=== PATIENT | female | born 1975 | race Caucasian/White ===

== ENCOUNTER 2016-11-06 14:38 | Outpatient (CLI) | payer MEDICAID | END 2016-11-06 14:39 | disposition home or self-care (01) | DX: F32.9 Major depressive disorder, single episode, unspecified (principal) ==

== ENCOUNTER 2016-12-24 13:14 | Outpatient (CLI) | payer MEDICAID | END 2016-12-24 13:15 | disposition home or self-care (01) | DX: R06.02 Shortness of breath (principal) ==

== ENCOUNTER 2017-05-11 13:36 | Emergency (ER) | payer MEDICAID ==
[2017-05-11 13:41] VITALS: BP 149/98
--- NOTE | 2017-05-11 18:20 | ED Physician Documentation ---
PD HPI ABD PAIN - Stated complaint Stated Complaint: ABX PX/VOMITING - Chief complaint Chief Complaint: Abd Pain - History obtained from History obtained from: Patient PD PAST MEDICAL HISTORY - Past Medical History Cardiovascular: None Respiratory: Asthma Endocrine/Autoimmune: None GI: None : None HEENT: None Psych: Depression, Anxiety, Panic attacks Musculoskeletal: None Derm: None - Past Surgical History General: Appendectomy - Present Medications Home Medications: Ambulatory Orders Medication Instructions Recorded Confirmed Butalbital/Aspirin/Caffeine 1 cap PO Q6H PRN 06/16/16 05/11/17 [Fiorinal 50-325-40 mg Capsule] Albuterol 1 puffs INH Q4H PRN 06/18/16 05/11/17 Alprazolam 0.5 mg PO PRN PRN 06/24/16 05/11/17 Amitriptyline [Elavil] 25 mg PO QPM 06/24/16 05/11/17 ARIPiprazole [Abilify] 5 mg PO DAILY 05/11/17 05/11/17 - Allergies Allergies/Adverse Reactions: Allergies Allergy/AdvReac Type Severity Reaction Status Date / Time Penicillins Allergy Rash Verified 06/18/16 10:19 - Social History Does the pt smoke?: Yes Smoking Status: Current every day smoker Does the pt drink ETOH?: No Does the pt have substance abuse?: No Results - Vitals Vitals: Oxygen O2 Source Room air Departure - Departure Disposition: ED Left Without Being Seen Discharge Date/Time: 05/11/17 18:26
== END 2017-05-11 18:26 | disposition left against medical advice (07) ==
LOC: ED 13:36
DX: R10.9 Unspecified abdominal pain (principal); Z53.21 Procedure and treatment not carried out due to patient leaving prior to being seen by health care provider; J45.909 Unspecified asthma, uncomplicated; F17.200 Nicotine dependence, unspecified, uncomplicated

== ENCOUNTER 2017-06-27 11:30 | Emergency (ER) | payer MEDICAID ==
[2017-06-27 11:47] VITALS: BP 155/119
--- NOTE | 2017-06-27 12:28 | XRAY Preliminary Report ---
Exam: XR Chest 2 View PA/LAT IMPRESSION: No acute process. [facility] SITE ID: [id number]
--- NOTE | 2017-06-27 12:31 | XRAY Report ---
EXAM: CHEST RADIOGRAPHY EXAM DATE: 06/27/2017 12:10 PM. CLINICAL HISTORY: Cough. COMPARISON: 12/24/2016. TECHNIQUE: 2 views. FINDINGS: Lungs/Pleura: No focal opacities evident. No pleural effusion. Minimal left basilar atelectasis. No p neumothorax. Normal volumes. Mediastinum: Heart and mediastinal contours are stable. IMPRESSION: No acute process. [facility] Referring Provider Line: [phone] SITE ID: [id number]
[2017-06-27] MEDS ORDERED: IPRATROPIUM/ALBUTEROL 3 ML NEB INH STA (12:34)
--- NOTE | 2017-06-27 12:37 | ED Physician Documentation ---
PD HPI DYSPNEA - Stated complaint Stated Complaint: COUGH/CONGESTED - Chief complaint Chief Complaint: Resp - History obtained from History obtained from: Patient - History of Present Illness Timing - onset: Other (41-year-old woman with chronic bronchitis maintained on albuterol and Dulera presents with 3 days of increasing shortness of breath, productive cough with yellow and green sputum and sinus pressure. No measured fevers. No sick contacts or recent travel.) Review of Systems Constitutional: denies: Fever, Chills Nose: reports: Rhinorrhea / runny nose, Congestion, Sinus pressure / pain Throat: denies: Sore throat Respiratory: reports: Dyspnea, Cough GI: denies: Abdominal Pain : reports: Hysterectomy. denies: Now EGA PD PAST MEDICAL HISTORY - Past Medical History Cardiovascular: None Respiratory: Asthma Endocrine/Autoimmune: None GI: None : None HEENT: None Psych: Depression, Anxiety, Panic attacks Musculoskeletal: None Derm: None - Past Surgical History General: Appendectomy - Present Medications Home Medications: Ambulatory Orders Medication Instructions Recorded Confirmed Butalbital/Aspirin/Caffeine 1 cap PO Q6H PRN 06/16/16 06/27/17 [Fiorinal 50-325-40 mg Capsule] Albuterol 1 puffs INH Q4H PRN 06/18/16 06/27/17 Alprazolam 0.5 mg PO PRN PRN 06/24/16 06/27/17 Amitriptyline [Elavil] 25 mg PO QPM 06/24/16 06/27/17 ARIPiprazole [Abilify] 5 mg PO DAILY 05/11/17 06/27/17 Doxycycline Hyclate 100 mg PO BID #14 tablet 06/27/17 guaiFENesin/CODEINE [Robitussin AC] 5 - 10 ml PO Q6H PRN #120 ml 06/27/17 predniSONE [Deltasone] 60 mg PO DAILY 5 Days tablet 06/27/17 - Allergies Allergies/Adverse Reactions: Allergies Allergy/AdvReac Type Severity Reaction Status Date / Time Penicillins Allergy Rash Verified 06/27/17 11:58 - Social History Does the pt smoke?: Yes Smoking Status: Current every day smoker Does the pt drink ETOH?: No Does the pt have substance abuse?: No PD ED PE NORMAL - Vitals Vital signs reviewed: Yes - General General: Alert and oriented X 3, No acute distress - HEENT HEENT: PERRL, EOMI, Ears normal - Neck Neck: Supple, no meningeal sign, No bony TTP - Cardiac Cardiac: RRR, No murmur - Respiratory Respiratory: Other (Very tight and wheezy throughout but no respiratory distress.) - Abdomen Abdomen: Soft, Non tender - Derm Derm: No rash - Neuro Neuro: Alert and oriented X 3, Normal speech - Psych Psych: Normal mood, Normal affect Results - Vitals Vitals: Vital Signs - 24 hr 06/27/17 11:45 Temperature 36.3 C L Heart Rate 99 Respiratory 18 Rate Blood Pressure 155/119 H O2 Saturation 97 Oxygen O2 Source Room air - Rads (name of study) 2 view chest Radiology: EMP read contemporaneously (Normal) Departure - Departure Disposition: Home, Self Care Clinical Impression: Acute exacerbation of chronic bronchitis Condition: Good Record reviewed to determine appropriate education?: Yes Instructions: ED COPD Flare Prescriptions: Doxycycline Hyclate 100 mg PO BID #14 tablet guaiFENesin/CODEINE [Robitussin AC] 5 - 10 ml PO Q6H PRN #120 ml PRN Reason: Cough predniSONE [Deltasone] 60 mg PO DAILY 5 Days tablet Comments: Call your doctor to arrange a follow-up appointment, make the next available appointment. In the interim, return anytime if worse or if new symptoms develop. Your blood pressure was elevated today on check into the emergency department. This does not mean that you have hypertension, it is a common phenomenon to come to the emergency department and have elevated blood pressure. I recommend that she see your primary care physician within the week to have it rechecked when you are feeling better. Forms: Activity restrictions
[2017-06-27] MEDS ORDERED: IPRATROPIUM/ALBUTEROL 3 ML NEB INH ONE (12:52)
== END 2017-06-27 13:04 | disposition home or self-care (01) ==
LOC: ED 11:30
DX: J20.9 Acute bronchitis, unspecified (principal); J42 Unspecified chronic bronchitis; F17.200 Nicotine dependence, unspecified, uncomplicated
CPT/HCPCS: 71020; 99283; J7620

== ENCOUNTER 2017-07-03 15:28 | Emergency (ER) | payer MEDICAID ==
[2017-07-03 15:34] VITALS: BP 142/91
[2017-07-03] MEDS ORDERED: predniSONE 20 MG TABLET PO STA (16:27)
[2017-07-03] MEDS ORDERED: IPRATROPIUM/ALBUTEROL 3 ML NEB INH STA (16:27)
--- NOTE | 2017-07-03 16:35 | ED Physician Documentation ---
PD HPI URI - Stated complaint Stated Complaint: SOA/COUGH - Chief complaint Chief Complaint: Resp - History obtained from History obtained from: Patient - History of Present Illness Timing - onset: How many weeks ago (4) Timing duration: Weeks (4) Timing details: Gradual onset Pain level max: 0 Pain level now: 0 Associated symptoms: Fever (101 this am), Sweats, Nasal congestion, Rhinorrhea, Productive cough (clear), Dyspnea. No: Chills, Hemoptysis, Chest pain, NVD Contributing factors: COPD / asthma Improves by: Rest, MDI/nebulizer Similar symptoms before: Diagnosis (COPD flare) Recently seen: Emergency Dept (last week for same) - Additional information Additional information: has appt on 07/06 with PCP Review of Systems Constitutional: reports: Fever GI: denies: Vomiting Skin: denies: Rash Musculoskeletal: denies: Neck pain, Back pain PD PAST MEDICAL HISTORY - Past Medical History Cardiovascular: None Respiratory: COPD Endocrine/Autoimmune: None GI: None : None HEENT: None Psych: Depression, Anxiety, Panic attacks Musculoskeletal: None Derm: None - Past Surgical History General: Appendectomy - Present Medications Home Medications: Ambulatory Orders Medication Instructions Recorded Confirmed Butalbital/Aspirin/Caffeine 1 cap PO Q6H PRN 06/16/16 07/03/17 [Fiorinal 50-325-40 mg Capsule] Albuterol 1 puffs INH Q4H PRN 06/18/16 07/03/17 Alprazolam 0.5 mg PO PRN PRN 06/24/16 07/03/17 Amitriptyline [Elavil] 25 mg PO QPM 06/24/16 07/03/17 ARIPiprazole [Abilify] 5 mg PO DAILY 05/11/17 07/03/17 Albuterol Sulf [Ventolin Hfa 2 puffs INH Q4HR PRN #1 inhaler 07/03/17 Inhaler] Benzonatate [Tessalon Perle] 100 - 200 mg PO TID PRN #30 capsule 07/03/17 Prednisone 40 mg PO DAILY #10 tablet 07/03/17 - Allergies Allergies/Adverse Reactions: Allergies Allergy/AdvReac Type Severity Reaction Status Date / Time Penicillins Allergy Rash Verified 06/27/17 11:58 - Social History Does the pt smoke?: Yes Smoking Status: Current every day smoker Does the pt drink ETOH?: No Does the pt have substance abuse?: No PD ED PE NORMAL - Vitals Vital signs reviewed: Yes - General General: Alert and oriented X 3, No acute distress, Well developed/nourished - HEENT HEENT: PERRL, Ears normal, Moist mucous membranes, Pharynx benign - Neck Neck: Supple, no meningeal sign - Cardiac Cardiac: RRR, Strong equal pulses - Respiratory Respiratory: No respiratory distress, Other (wheezing and decreased BS bilaterally.) - Abdomen Abdomen: Soft, Non tender - Derm Derm: Warm and dry, No rash - Extremities Extremities: No edema, No calf tenderness / cord - Neuro Neuro: Alert and oriented X 3 Results - Vitals Vitals: Vital Signs - 24 hr 07/03/17 07/03/17 07/03/17 15:30 16:45 17:15 Temperature 36.9 C Heart Rate 101 H 93 101 H Respiratory 20 20 16 Rate Blood Pressure 142/91 H O2 Saturation 93 07/03/17 17:46 Temperature Heart Rate 107 H Respiratory 20 Rate Blood Pressure O2 Saturation 91 L Oxygen O2 Source Room air - Rads (name of study) cxr Radiology: Prelim report reviewed, EMP read contemporaneously, See rad report ( Minor left base scarring, otherwise unremarkable 2-view chest radiography. ) PD MEDICAL DECISION MAKING - ED course Complexity details: reviewed old records, reviewed results, re-evaluated patient , considered differential, d/w patient ED course: Patient is a 41-year-old female who presents to the emergency department with what appears to be a viral URI complicating her COPD. Feels much better after steroids and nebulizer treatment. No hypoxia. No respiratory distress. Ambulating throughout the emergency department without difficulty. No hypoxia with ambulation. We will place her back on steroids and nebulizer treatment and follow-up with her doctor as scheduled on Thursday. Patient counseled regarding signs and symptoms for which I believe and urgent re-evaluation would be necessary. Patient with good understanding of and agreement to plan and is comfortable going home at this time This document was made in part using voice recognition software. While efforts are made to proofread this document, sound alike and grammatical errors may occur. Patient was 94% on room air when leaving the ED despite the 91% documented in the nursing note. Nursing vitals not seen til after change of shift. Departure - Departure Disposition: Home, Self Care Clinical Impression: COPD exacerbation Condition: Good Instructions: ED COPD Flare Follow-Up: Nitza He ARNP [Primary Care Provider] - Within 1 week Prescriptions: Albuterol Sulf [Ventolin Hfa Inhaler] 2 puffs INH Q4HR PRN #1 inhaler PRN Reason: Wheezing Benzonatate [Tessalon Perle] 100 - 200 mg PO TID PRN #30 capsule PRN Reason: Cough Prednisone 40 mg PO DAILY #10 tablet Comments: Return if you worsen. Your x-ray does not show any acute abnormalities today. Your blood pressure was elevated today on check in to the emergency department. This does not mean that you have hypertension, it is a common phenomenon to check into the emergency department and have elevated blood pressure. I recommend that you see your primary care physician within the week to have it rechecked when you're feeling better. Discharge Date/Time: 07/03/17 18:03
[2017-07-03] MEDS ORDERED: IPRATROPIUM/ALBUTEROL 3 ML NEB INH ONE (16:46)
[2017-07-03] MEDS ORDERED: predniSONE 20 MG TABLET ONE (16:51)
[2017-07-03] MEDS ORDERED: ALBUTEROL NEB 2.5 MG/3 ML INH STA (16:57)
[2017-07-03] MEDS ORDERED: ALBUTEROL NEB 2.5 MG/3 ML INH ONE (17:25)
--- NOTE | 2017-07-03 17:31 | XRAY Preliminary Report ---
Exam: XR Chest 2 View PA/LAT IMPRESSION: Minor left base scarring, otherwise unremarkable 2-view chest radiography. [facility] SITE ID: [id number]
--- NOTE | 2017-07-03 17:33 | XRAY Report ---
EXAM: CHEST RADIOGRAPHY EXAM DATE: 07/03/2017 05:18 PM. CLINICAL HISTORY: Wheezing. Coughing. Fever. COMPARISON: 06/27/2017. TECHNIQUE: 2 views. FINDINGS: Lungs/Pleura: Minor left base scarring, otherwise no focal opacities evident. No pleural effusion. No pneumothorax. Normal volumes. Mediastinum: Heart and mediastinal contours are unremarkable. Other: No compression fractures. IMPRESSION: Minor left base scarring, otherwise unremarkable 2-view chest radiography. [facility] Referring Provider Line: [phone] SITE ID: [id number]
== END 2017-07-03 18:03 | disposition home or self-care (01) ==
LOC: ED 15:28
DX: J44.1 Chronic obstructive pulmonary disease with (acute) exacerbation (principal); R03.0 Elevated blood-pressure reading, without diagnosis of hypertension; F17.200 Nicotine dependence, unspecified, uncomplicated
CPT/HCPCS: 71020; 94640; 99283; 99284; J7512; J7613; J7620

== ENCOUNTER 2017-10-04 09:25 | Outpatient (CLI) | payer MEDICAID ==
[2017-10-04] MEDS ORDERED: ALBUTEROL NEB 2.5 MG/3 ML INH ONE (11:15)
== END 2017-10-04 09:26 | disposition home or self-care (01) ==
LOC: RT 09:25
PROVIDERS: ATTEND Nurse Practitioner Family
DX: J45.20 Mild intermittent asthma, uncomplicated (principal); R06.02 Shortness of breath
CPT/HCPCS: 94060; 94729; J7613

== ENCOUNTER 2017-11-25 13:08 | Emergency (ER) | payer MEDICAID ==
[2017-11-25 13:37] VITALS: BP 164/108
--- NOTE | 2017-11-25 14:18 | ED Physician Documentation ---
PD HPI URI - Stated complaint Stated Complaint: COUGH,FACIAL PX - Chief complaint Chief Complaint: Resp - History obtained from History obtained from: Patient - History of Present Illness Timing - onset: Other (42-year-old woman with COPD presents with 3-4 days of increased cough, shortness of breath, sinus drainage bilaterally and sinus pain but no fevers. She has had sweats.) Review of Systems Constitutional: reports: Sweats. denies: Fever, Chills Nose: reports: Rhinorrhea / runny nose, Congestion, Sinus pressure / pain Throat: denies: Sore throat Respiratory: reports: Dyspnea, Cough PD PAST MEDICAL HISTORY - Past Medical History Cardiovascular: None Respiratory: COPD Endocrine/Autoimmune: None GI: None : None HEENT: None Psych: Depression, Anxiety, Panic attacks Musculoskeletal: None Derm: None - Past Surgical History General: Appendectomy - Present Medications Home Medications: Ambulatory Orders Medication Instructions Recorded Confirmed Butalbital/Aspirin/Caffeine 1 cap PO Q6H PRN 06/16/16 07/03/17 [Fiorinal 50-325-40 mg Capsule] Albuterol 1 puffs INH Q4H PRN 06/18/16 07/03/17 ALPRAZolam [Alprazolam] 0.5 mg PO PRN PRN 06/24/16 07/03/17 Amitriptyline [Elavil] 25 mg PO QPM 06/24/16 07/03/17 ARIPiprazole [Abilify] 5 mg PO DAILY 05/11/17 07/03/17 Albuterol Sulf [Ventolin Hfa 2 puffs INH Q4HR PRN #1 inhaler 07/03/17 Inhaler] Doxycycline Hyclate 100 mg PO BID #14 tablet 11/25/17 Guaifenesin/Pseudoephedrne HCl 1 each PO BID PRN #20 tab.er.12h 11/25/17 [Mucinex D ER 600-60 mg Tablet] Mometasone Furoate [Nasonex] 1 spray NS BID #1 spray.pump 11/25/17 guaiFENesin/CODEINE [Robitussin AC] 5 - 10 ml PO Q6H PRN #120 ml 11/25/17 predniSONE [Deltasone] 60 mg PO DAILY 5 Days tablet 11/25/17 - Allergies Allergies/Adverse Reactions: Allergies Allergy/AdvReac Type Severity Reaction Status Date / Time Penicillins Allergy Rash Verified 11/25/17 13:37 - Social History Does the pt smoke?: Yes Smoking Status: Current every day smoker Does the pt drink ETOH?: No Does the pt have substance abuse?: No PD ED PE NORMAL - Vitals Vital signs reviewed: Yes - General General: Alert and oriented X 3, No acute distress - HEENT HEENT: PERRL, EOMI, Ears normal, Moist mucous membranes, Pharynx benign, Other ( TTP both max sinuses) - Neck Neck: Supple, no meningeal sign, No bony TTP - Cardiac Cardiac: RRR, No murmur - Respiratory Respiratory: No respiratory distress, Other (Mod loud rhonchi throughout) - Abdomen Abdomen: Soft, Non tender - Derm Derm: Normal color, Warm and dry - Extremities Extremities: No edema, No calf tenderness / cord - Neuro Neuro: Alert and oriented X 3, Normal speech - Psych Psych: Normal mood, Normal affect Results - Vitals Vitals: Vital Signs - 24 hr 11/25/17 13:34 Temperature 36.7 C Heart Rate 85 Respiratory 18 Rate Blood Pressure 164/108 H O2 Saturation 95 Oxygen O2 Source Room air PD MEDICAL DECISION MAKING - ED course ED course: The patient was counseled as to the diagnosis and need for follow-up. I counseled the patient with regard to signs and symptoms that would necessitate an urgent reevaluation in the emergency department. They understand they are welcome to return at any time if worse or if not improving as expected. This document was made in part using voice recognition software. While efforts are made to proofread this documents, sound alike and grammatical errors may occur. Departure - Departure Disposition: 01 Home, Self Care Clinical Impression: Acute exacerbation of chronic bronchitis, COPD exacerbation Condition: Good Record reviewed to determine appropriate education?: Yes Instructions: ED Bronchitis Asthmatic Prescriptions: Doxycycline Hyclate 100 mg PO BID #14 tablet guaiFENesin/CODEINE [Robitussin AC] 5 - 10 ml PO Q6H PRN #120 ml PRN Reason: Cough Guaifenesin/Pseudoephedrne HCl [Mucinex D ER 600-60 mg Tablet] 1 each PO BID PRN #20 tab.er.12h PRN Reason: congestion Mometasone Furoate [Nasonex] 1 spray NS BID #1 spray.pump predniSONE [Deltasone] 60 mg PO DAILY 5 Days tablet Comments: Call your doctor to arrange a follow-up appointment, make the next available appointment. In the interim, return anytime if worse or if new symptoms develop. Your blood pressure was elevated today on check into the emergency department. This does not mean that you have hypertension, it is a common phenomenon to come to the emergency department and have elevated blood pressure. I recommend that you see your primary care physician within the week to have it rechecked when you are feeling better. Forms: Activity restrictions
== END 2017-11-25 14:40 | disposition home or self-care (01) ==
LOC: ED 13:08
DX: J20.9 Acute bronchitis, unspecified (principal); J44.1 Chronic obstructive pulmonary disease with (acute) exacerbation; R03.0 Elevated blood-pressure reading, without diagnosis of hypertension; F17.200 Nicotine dependence, unspecified, uncomplicated
CPT/HCPCS: 99281; 99283

== ENCOUNTER 2018-03-25 08:00 | Outpatient (CLI) | payer MEDICAID | END 2018-03-25 08:01 | disposition home or self-care (01) | LOC: LAB.R 08:00 | PROVIDERS: ATTEND Family Medicine | DX: R30.0 Dysuria (principal) | CPT/HCPCS: 87086; 87181 ==

== ENCOUNTER 2018-03-26 10:52 | Outpatient (CLI) | payer MEDICAID ==
[2018-03-26] MEDS ORDERED: IOPAMIDOL-300 100 ML VIAL ONE (11:40)
[2018-03-26] MEDS ORDERED: IOPAMIDOL-300 100 ML VIAL IVP ONE (12:02)
--- NOTE | 2018-03-26 12:31 | CT Report ---
Procedure Date: 03/26/2018 Accession Number: [id number] / [id number] Procedure: CT - IVP CPT Code: FULL RESULT: EXAM: IVP DATE: 03/26/2018 12:18 PM CLINICAL HISTORY: DYSURIA, HEMATURIA, HX OF CALCULUS, KIDNEY COMPARISON: None. TECHNIQUE: Routine helical imaging was performed through the kidneys, ureters and bladder in the precontrast and postcontrast phases, using split bolus technique. IV Contrast: 100 mL Isovue 300 Reconstructions: Coronal and sagittal. In accordance with CT protocol optimization, one or more of the following dose reduction techniques were utilized for this exam: automated exposure control, adjustment of mA and/or KV based on patient size, or use of iterative reconstructive technique. FINDINGS: Lung Bases: Normal. Right Kidney/Ureter: No stones, hydronephrosis, or masses. Left Kidney/Ureter: No stones, hydronephrosis, or solid renal mass. Small cortical cysts. Other Solid Organs: Fatty infiltration of the liver. The spleen, pancreas and adrenal glands appear unremarkable. The bile ducts are unremarkable. Peritoneal Cavity/Bowel: Normal. No free fluid, free air or adenopathy. No masses. Bowel loops are unremarkable. Pelvic Organs: No bladder stones, obstruction or masses. The visualized pelvic organs are unremarkable. Vasculature: Normal. Bones: Normal. Other: None. IMPRESSION: Incidental left renal cysts. No evidence of nephrolithiasis or solid renal mass. [facility]
== END 2018-03-26 10:53 | disposition home or self-care (01) ==
LOC: DI 10:52
PROVIDERS: ATTEND Family Medicine
DX: R30.0 Dysuria (principal); R31.9 Hematuria, unspecified; Z87.442 Personal history of urinary calculi
CPT/HCPCS: 74178; Q9967

== ENCOUNTER 2018-04-16 17:28 | Emergency (ER) | payer MEDICAID ==
[2018-04-16] MEDS ORDERED: ALBUTEROL NEB 2.5 MG/3 ML INH STA (17:58)
[2018-04-16] MEDS ORDERED: IPRATROPIUM 0.2 MG/ML NEB INH STA (17:58)
[2018-04-16] MEDS ORDERED: predniSONE 20 MG TABLET PO STA (17:59)
[2018-04-16 19:37] VITALS: BP 133/77
--- NOTE | 2018-04-16 19:55 | ED Physician Documentation ---
History of Present Illness - Stated complaint Stated Complaint: SOA - Chief complaint Chief Complaint: Resp - History obtained from History obtained from: Patient - Additonal information Additional information: 42-year-old female presents the emergency department with complaints of wheezing and shortness of breath. The patient has a history of COPD and continues to smoke. The patient has been using her home medications with minimal relief. The patient's symptoms are consistent with her normal COPD. The patient denies fevers, chills, cough, chest congestion. Symptoms are described as moderate. No other associated symptoms. Review of Systems Constitutional: reports: Fatigue. denies: Fever, Chills Eyes: denies: Discharge Ears: denies: Tinnitus/ringing Nose: denies: Rhinorrhea / runny nose, Congestion Cardiac: denies: Chest pain / pressure Respiratory: reports: Dyspnea, Wheezing GI: denies: Abdominal Pain : denies: Dysuria Skin: denies: Rash Musculoskeletal: denies: Neck pain Neurologic: denies: Generalized weakness Psychiatric: denies: Depressed Immunocompromised: denies: Chemotherapy PD PAST MEDICAL HISTORY - Past Medical History Past Medical History: Yes Cardiovascular: None Respiratory: COPD Endocrine/Autoimmune: None GI: None : None HEENT: None Psych: Depression, Anxiety, Panic attacks Musculoskeletal: None Derm: None - Past Surgical History General: Appendectomy - Present Medications Home Medications: Ambulatory Orders Medication Instructions Recorded Confirmed Butalbital/Aspirin/Caffeine 1 cap PO Q6H PRN 06/16/16 07/03/17 [Fiorinal 50-325-40 mg Capsule] Albuterol 1 puffs INH Q4H PRN 06/18/16 07/03/17 ALPRAZolam [Alprazolam] 0.5 mg PO PRN PRN 06/24/16 07/03/17 Amitriptyline [Elavil] 25 mg PO QPM 06/24/16 07/03/17 ARIPiprazole [Abilify] 5 mg PO DAILY 05/11/17 07/03/17 Albuterol Sulf [Ventolin Hfa 2 puffs INH Q4HR PRN #1 inhaler 07/03/17 Inhaler] predniSONE [Prednisone] 60 mg PO DAILY 4 Days #12 tablet 04/16/18 - Allergies Allergies/Adverse Reactions: Allergies Allergy/AdvReac Type Severity Reaction Status Date / Time Penicillins Allergy Rash Verified 04/16/18 17:41 - Social History Does the pt smoke?: Yes Smoking Status: Current every day smoker Does the pt drink ETOH?: No Does the pt have substance abuse?: No - POLST Patient has POLST: No PD ED PE NORMAL - General General: Alert and oriented X 3, No acute distress - HEENT HEENT: Atraumatic, PERRL, EOMI - Neck Neck: Supple, no meningeal sign - Cardiac Cardiac: RRR, Strong equal pulses - Respiratory Respiratory: Other (The patient has decreased aeration with wheezing bilaterally. The patient is not in any respiratory distress or signs of respiratory failure) - Derm Derm: Normal color - Extremities Extremities: No deformity, No edema - Neuro Neuro: Alert and oriented X 3, Normal speech - Psych Psych: Normal mood Results - Vitals Vitals: Vital Signs - 24 hr 04/16/18 04/16/18 04/16/18 17:39 18:19 19:25 Temperature 36.1 C L Heart Rate 80 86 Respiratory 22 22 17 Rate Blood Pressure 169/99 H O2 Saturation 98 04/16/18 19:35 Temperature Heart Rate 103 H Respiratory 19 Rate Blood Pressure 133/77 H O2 Saturation 97 Oxygen O2 Source Room air PD MEDICAL DECISION MAKING - ED course ED course: The patient improved after a long treatment in the emergency department. On reevaluation she has good aeration and her wheezing has almost completely resolved. The patient appears appropriate for discharge home at this point. The patient be put on a course of prednisone. I discussed warning signs for decompensation and recommended returning to the emergency department immediately for any worsening or concerns. - Sepsis Event Vital Signs: Vital Signs - 24 hr 04/16/18 04/16/18 04/16/18 17:39 18:19 19:25 Temperature 36.1 C L Heart Rate 80 86 Respiratory 22 22 17 Rate Blood Pressure 169/99 H O2 Saturation 98 04/16/18 19:35 Temperature Heart Rate 103 H Respiratory 19 Rate Blood Pressure 133/77 H O2 Saturation 97 Oxygen O2 Source Room air Departure - Departure Disposition: 01 Home, Self Care Clinical Impression: COPD with exacerbation Condition: Good Instructions: Emphysema Dc Follow-Up: MORIAH HENDERSON MD [Primary Care Provider] - Within 1 week Prescriptions: predniSONE [Prednisone] 60 mg PO DAILY 4 Days #12 tablet Comments: Please return to the emergency department for worsening symptoms or any concerns. Forms: Activity restrictions
== END 2018-04-16 20:18 | disposition home or self-care (01) ==
LOC: ED 17:28
DX: J44.1 Chronic obstructive pulmonary disease with (acute) exacerbation (principal); F17.200 Nicotine dependence, unspecified, uncomplicated
CPT/HCPCS: 99283; A9270; J7512

== ENCOUNTER 2018-05-12 17:08 | Outpatient (CLI) | payer MEDICAID | END 2018-05-12 17:09 | disposition critical access hospital (66) | LOC: EMS 17:08 | PROVIDERS: ATTEND Surgery | DX: R55 Syncope and collapse (principal); R03.0 Elevated blood-pressure reading, without diagnosis of hypertension; R05 Cough | CPT/HCPCS: A0425; A0429; A0999 ==

== ENCOUNTER 2018-05-12 17:27 | Emergency (ER) | payer MEDICAID ==
[2018-05-12] MEDS ORDERED: IPRATROPIUM/ALBUTEROL 3 ML NEB INH STA (17:44)
--- NOTE | 2018-05-12 17:46 | ED Physician Documentation ---
PD HPI SYNCOPE - Stated complaint Stated Complaint: SYNCOPE - Chief complaint Chief Complaint: Neuro - History obtained from History obtained from: Patient - History of Present Illness Witnessed: Witnessed (She was standing at work at [employer], she started to feel dizzy and lightheaded and passed out without injury. She feels okay now but does have a cough.) Review of Systems Constitutional: denies: Fever, Chills Ears: denies: Loss of hearing, Ear pain Nose: denies: Rhinorrhea / runny nose, Congestion Cardiac: denies: Chest pain / pressure, Palpitations Respiratory: reports: Cough PD PAST MEDICAL HISTORY - Past Medical History Cardiovascular: None Respiratory: COPD Endocrine/Autoimmune: None GI: None : None HEENT: None Psych: Depression, Anxiety, Panic attacks Musculoskeletal: None Derm: None - Past Surgical History General: Appendectomy - Present Medications Home Medications: Ambulatory Orders Medication Instructions Recorded Confirmed Butalbital/Aspirin/Caffeine 1 cap PO Q6H PRN 06/16/16 07/03/17 [Fiorinal 50-325-40 mg Capsule] Albuterol 1 puffs INH Q4H PRN 06/18/16 07/03/17 ALPRAZolam [Alprazolam] 0.5 mg PO PRN PRN 06/24/16 07/03/17 Amitriptyline [Elavil] 25 mg PO QPM 06/24/16 07/03/17 ARIPiprazole [Abilify] 5 mg PO DAILY 05/11/17 07/03/17 Albuterol Sulf [Ventolin Hfa 2 puffs INH Q4HR PRN #1 inhaler 07/03/17 Inhaler] predniSONE [Prednisone] 60 mg PO DAILY 4 Days #12 tablet 04/16/18 Sulfamethoxazole/Trimethoprim 1 each PO BID 7 Days tablet 05/12/18 [Sulfamethoxazole-Tmp Ds Tablet] - Allergies Allergies/Adverse Reactions: Allergies Allergy/AdvReac Type Severity Reaction Status Date / Time Penicillins Allergy Rash Verified 05/12/18 17:40 - Social History Does the pt smoke?: Yes Smoking Status: Current every day smoker Does the pt drink ETOH?: No Does the pt have substance abuse?: No - POLST Patient has POLST: No PD ED PE NORMAL - Vitals Vital signs reviewed: Yes - General General: Alert and oriented X 3, No acute distress - HEENT HEENT: PERRL, EOMI - Neck Neck: Supple, no meningeal sign, No bony TTP - Cardiac Cardiac: RRR, No murmur - Respiratory Respiratory: No respiratory distress, Other (Rhonchi ) - Abdomen Abdomen: Normal bowel sounds, Soft, Non tender - Back Back: No CVA TTP, No spinal TTP - Derm Derm: Normal color, Warm and dry - Extremities Extremities: No edema, No calf tenderness / cord - Neuro Neuro: Alert and oriented X 3, Normal speech - Psych Psych: Normal mood, Normal affect Results - Vitals Vitals: Vital Signs - 24 hr 05/12/18 05/12/18 05/12/18 17:27 18:00 18:02 Temperature 36.4 C L Heart Rate 89 82 87 Respiratory 18 16 20 Rate Blood Pressure 151/103 H 136/97 H O2 Saturation 96 97 05/12/18 05/12/18 19:57 19:58 Temperature 36.3 C L Heart Rate 80 80 Respiratory 20 18 Rate Blood Pressure 146/106 H 146/106 H O2 Saturation 98 Oxygen O2 Source Room air - EKG (time done) 1743 Rate: Rate (enter#) (94) Rhythm: NSR [place]: Normal Intervals: Normal MT QRS: Normal Ischemia: Normal ST segments Computer interpretation: Agree with computer - Labs Labs: Laboratory Tests 05/12/18 05/12/18 05/12/18 17:57 17:57 17:57 WBC 8.4 RBC 4.49 Hgb 14.7 Hct 42.3 MCV 94.3 MCH 32.8 H MCHC 34.8 RDW 13.3 Plt Count 185 MPV 7.7 L Neut # (Auto) 4.5 Lymph # (Auto) 2.9 [place] # (Auto) 0.6 Eos # (Auto) 0.3 Baso # (Auto) 0.1 Absolute Nucleated RBC 0.00 Nucleated RBC % 0.0 Sodium 136 Potassium 3.9 Chloride 103 Carbon Dioxide 26 Anion Gap 7.0 BUN 13 Creatinine 0.7 Estimated GFR (MDRD) 91 Glucose 117 H Calcium 8.7 Total Bilirubin 0.4 AST 21 ALT 20 Alkaline Phosphatase 64 Troponin I < 0.04 Total Protein 6.5 L Albumin 3.5 Globulin 3.0 Albumin/Globulin Ratio 1.2 Lipase 25 Urine Color Urine Clarity Urine pH Ur Specific [place] Urine Protein Urine Glucose (UA) Urine Ketones Urine Occult Blood Urine Nitrite Urine Bilirubin Urine Urobilinogen Ur Leukocyte Esterase Urine RBC Urine WBC Ur Squamous Epith Cells Urine Bacteria Ur Microscopic Review Urine Culture Comments 05/12/18 19:00 WBC RBC Hgb Hct MCV MCH MCHC RDW Plt Count MPV Neut # (Auto) Lymph # (Auto) [place] # (Auto) Eos # (Auto) Baso # (Auto) Absolute Nucleated RBC Nucleated RBC % Sodium Potassium Chloride Carbon Dioxide Anion Gap BUN Creatinine Estimated GFR (MDRD) Glucose Calcium Total Bilirubin AST ALT Alkaline Phosphatase Troponin I Total Protein Albumin Globulin Albumin/Globulin Ratio Lipase Urine Color YELLOW Urine Clarity CLEAR Urine pH 6.0 Ur Specific [place] 1.025 Urine Protein NEGATIVE Urine Glucose (UA) NEGATIVE Urine Ketones NEGATIVE Urine Occult Blood NEGATIVE Urine Nitrite POSITIVE H Urine Bilirubin NEGATIVE Urine Urobilinogen 0.2 (NORMAL) Ur Leukocyte Esterase NEGATIVE Urine RBC None Seen Urine WBC 6-10 H Ur Squamous Epith Cells MOD Squamous H Urine Bacteria Moderate H Ur Microscopic Review INDICATED Urine Culture Comments NOT INDICATED - Rads (name of study) 2v chest Radiology: EMP read contemporaneously (normal) PD MEDICAL DECISION MAKING - ED course ED course: 42-year-old woman with syncopal episode today. She has been sick for a few days with symptoms of UTI, dysuria and frequency. Otherwise her workup was negative. No recurrent episodes or ectopy here. - Sepsis Event Vital Signs: Vital Signs - 24 hr 05/12/18 05/12/18 05/12/18 17:27 18:00 18:02 Temperature 36.4 C L Heart Rate 89 82 87 Respiratory 18 16 20 Rate Blood Pressure 151/103 H 136/97 H O2 Saturation 96 97 05/12/18 05/12/18 19:57 19:58 Temperature 36.3 C L Heart Rate 80 80 Respiratory 20 18 Rate Blood Pressure 146/106 H 146/106 H O2 Saturation 98 Oxygen O2 Source Room air Departure - Departure Disposition: 01 Home, Self Care Clinical Impression: COPD with exacerbation Syncope Qualifiers: Syncope type: unspecified Qualified Code(s): R55 - Syncope and collapse UTI (urinary tract infection) Qualifiers: Urinary tract infection type: acute cystitis Hematuria presence: without hematuria Qualified Code(s): N30.00 - Acute cystitis without hematuria Condition: Good Record reviewed to determine appropriate education?: Yes Instructions: COPD Dc, ED UTI Cystitis Female Prescriptions: Sulfamethoxazole/Trimethoprim [Sulfamethoxazole-Tmp Ds Tablet] 1 each PO BID 7 Days tablet Comments: We will culture your urine, the results should be done in 48-72 hours. If an antibiotic change is necessary we will call you. Return if worse in the meantime, especially if you develop increasing flank pain, fevers, or cannot keep down the medication. Your blood pressure was elevated today on check into the emergency department. This does not mean that you have hypertension, it is a common phenomenon to come to the emergency department and have elevated blood pressure. I recommend that you see your primary care physician within the week to have it rechecked when you are feeling better. Call your doctor to arrange a follow-up appointment, make the next available appointment. In the interim, return anytime if worse or if new symptoms develop. Forms: Activity restrictions Discharge Date/Time: 05/12/18 19:58
[2018-05-12 18:05] LABS: BASOPHILS # (AUTO) 0.1 10^3/uL (0.0-0.1); BASOPHILS % (AUTO) 0.8 %; EOSINOPHILS # (AUTO) 0.3 10^3/uL (0.0-0.7); EOSINOPHILS % (AUTO) 3.2 %; HGB - HEMOGLOBIN 14.7 g/dL (12.0-16.0); LYMPHOCYTES # (AUTO) 2.9 10^3/uL (1.5-3.5); LYMPHOCYTES % (AUTO) 35.1 %; MEAN CORPUSCULAR HEMOGLOBIN 32.8 pg (27.0-31.0); MEAN CORPUSCULAR HGB CONC 34.8 g/dL (32.0-36.0); MEAN CORPUSCULAR VOLUME 94.3 fL (81.0-99.0); MEAN PLATELET VOLUME 7.7 fL (7.9-10.8); MONOCYTES # (AUTO) 0.6 10^3/uL (0.0-1.0); MONOCYTES % (AUTO) 7.7 %; NEUTROPHILS # (AUTO) 4.5 10^3/uL (1.5-6.6); NEUTROPHILS % (AUTO) 53.2 %; PLT - PLATELET COUNT 185 10^3/uL (130-450); RED BLOOD COUNT 4.49 10^6/uL (4.20-5.40); RED CELL DISTRIBUTION WIDTH 13.3 % (12.0-15.0); WHITE BLOOD COUNT 8.4 x10^3/uL (4.8-10.8)
[2018-05-12 18:17] LABS: ALBUMIN 3.5 g/dL (3.2-5.5); ALBUMIN/GLOBULIN RATIO 1.2 (1.0-2.2); BILIRUBIN,TOTAL 0.4 mg/dL (0.2-1.0); CALCIUM 8.7 mg/dL (8.5-10.3); CREATININE 0.7 mg/dL (0.4-1.0); TOTAL PROTEIN 6.5 g/dL (6.7-8.2)
--- NOTE | 2018-05-12 18:41 | XRAY Report ---
Procedure Date: 05/12/2018 Accession Number: [id number] / [id number] Procedure: XR - Chest 2 View X-Ray CPT Code: 77111 FULL RESULT: EXAM: CHEST RADIOGRAPHY EXAM DATE: 05/12/2018 06:19 PM. CLINICAL HISTORY: Protective cough. Dyspnea. COMPARISON: CHEST 2 VIEW PA/LAT 07/03/2017. TECHNIQUE: 2 views. FINDINGS: Lungs/Pleura: No focal opacities evident. No pleural effusion. No pneumothorax. Normal volumes. Mediastinum: Heart and mediastinal contours are unremarkable. Other: No compression fractures. IMPRESSION: Normal 2-view chest radiography. RADIA
[2018-05-12 19:11] LABS: BILIRUBIN,URINE NEGATIVE (NEGATIVE); GLUCOSE, URINE (UA) NEGATIVE (NEGATIVE); KETONES,URINE (UA) NEGATIVE (NEGATIVE); LEUKOCYTE ESTERASE, URINE NEGATIVE (NEGATIVE); NITRITE,URINE POSITIVE (NEGATIVE); OCCULT BLOOD,URINE NEGATIVE (NEGATIVE); PROTEIN,URINE NEGATIVE (NEGATIVE); UROBILINOGEN,URINE 0.2 (NORMAL) E.U./dL (NORMAL)
[2018-05-12 19:16] LABS: CLARITY,URINE CLEAR (CLEAR)
[2018-05-12 19:34] LABS: BACTERIA,URINE Moderate /HPF (None Seen); RBC,URINE None Seen /HPF (0-5); SQUAMOUS EPITHELIAL CELL,UR MOD Squamous (<= Few)
[2018-05-12] MEDS ORDERED: SULFAMETH/TRIMETH DS 800/160 MG TABLET PO STA (19:48)
[2018-05-12 19:58] VITALS: BP 146/106
== END 2018-05-12 19:58 | disposition home or self-care (01) ==
LOC: EDUNIT# → SUPCPDRO 17:27 → ED 17:27
DX: J44.1 Chronic obstructive pulmonary disease with (acute) exacerbation (principal); R55 Syncope and collapse; N30.00 Acute cystitis without hematuria
CPT/HCPCS: 36415; 71046; 80053; 81001; 83690; 84484; 85025; 93005; 94640; 94664; 99284; A9270; 81003; 87086

== ENCOUNTER 2018-05-23 12:29 | Emergency (ER) | payer MEDICAID ==
[2018-05-23] MEDS ORDERED: IPRATROPIUM/ALBUTEROL 3 ML NEB INH STA (12:52)
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
[2018-05-23 13:16] LABS: BASOPHILS % (AUTO) 0.4 %; EOSINOPHILS # (AUTO) 0.2 10^3/uL (0.0-0.7); EOSINOPHILS % (AUTO) 2.6 %; HGB - HEMOGLOBIN 15.7 g/dL (12.0-16.0); LYMPHOCYTES # (AUTO) 1.6 10^3/uL (1.5-3.5); LYMPHOCYTES % (AUTO) 23.5 %; MEAN CORPUSCULAR HEMOGLOBIN 32.7 pg (27.0-31.0); MEAN CORPUSCULAR VOLUME 93.4 fL (81.0-99.0); MEAN PLATELET VOLUME 7.9 fL (7.9-10.8); MONOCYTES # (AUTO) 0.3 10^3/uL (0.0-1.0); MONOCYTES % (AUTO) 5.1 %; NEUTROPHILS # (AUTO) 4.6 10^3/uL (1.5-6.6); NEUTROPHILS % (AUTO) 68.4 %; PLT - PLATELET COUNT 201 10^3/uL (130-450); RED BLOOD COUNT 4.81 10^6/uL (4.20-5.40); WHITE BLOOD COUNT 6.8 x10^3/uL (4.8-10.8)
[2018-05-23 13:24] LABS: ALBUMIN 3.8 g/dL (3.2-5.5); ALBUMIN/GLOBULIN RATIO 1.2 (1.0-2.2); BILIRUBIN,TOTAL 0.7 mg/dL (0.2-1.0); CALCIUM 8.5 mg/dL (8.5-10.3); CREATININE 0.7 mg/dL (0.4-1.0); TOTAL PROTEIN 7.1 g/dL (6.7-8.2)
[2018-05-23] MEDS ORDERED: DOXYCYCLINE 100 MG TABLET PO STA (13:54)
[2018-05-23] MEDS ORDERED: BENZONATATE 100 MG CAPSULE PO STA (13:54)
[2018-05-23] MEDS ORDERED: predniSONE 20 MG TABLET PO STA (13:54)
[2018-05-23 14:07] VITALS: BP 135/88
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
== END 2018-05-23 14:10 | disposition home or self-care (01) ==
LOC: ED 12:29
DX: J44.1 Chronic obstructive pulmonary disease with (acute) exacerbation (principal); F17.200 Nicotine dependence, unspecified, uncomplicated
CPT/HCPCS: 36415; 71046; 80053; 83690; 85025; 94640; 99283; A9270; J7512

== ENCOUNTER 2018-07-15 15:28 | Emergency (ER) | payer MEDICAID ==
[2018-07-15 15:36] VITALS: BP 138/91
[2018-07-15] MEDS ORDERED: IPRATROPIUM/ALBUTEROL 3 ML NEB INH STA (15:50)
[2018-07-15] MEDS ORDERED: predniSONE 20 MG TABLET PO STA (15:50)
[2018-07-15] MEDS ORDERED: BENZONATATE 100 MG CAPSULE PO STA (15:51)
--- NOTE | 2018-07-15 15:56 | ED Physician Documentation ---
History of Present Illness - Stated complaint Stated Complaint: SOA/COUGH - Chief complaint Chief Complaint: Resp - History obtained from History obtained from: Patient - History of Present Illness Timing: Today Pain level max: 2 Pain level now: 2 - Additonal information Additional information: Patient is a 42-year-old female who presents to the emergency department with a cough and congestion for the past 4 days. Has a history of COPD. Has had increasing shortness of breath. Is not currently on steroids. Does have an inhaler at home and is using it occasionally. No fevers. Better with her inhaler, worse with exertion. Review of Systems Constitutional: denies: Fever, Chills Ears: denies: Ear pain Nose: reports: Rhinorrhea / runny nose, Congestion Cardiac: denies: Chest pain / pressure Respiratory: reports: Cough, Wheezing. denies: Hemoptysis GI: denies: Abdominal Pain, Nausea, Vomiting, Diarrhea Skin: denies: Rash Musculoskeletal: denies: Neck pain, Back pain Neurologic: denies: Focal weakness, Numbness, Headache PD PAST MEDICAL HISTORY - Past Medical History Cardiovascular: None Respiratory: COPD Endocrine/Autoimmune: None GI: None : None HEENT: None Psych: Depression, Anxiety, Panic attacks Musculoskeletal: None Derm: None - Past Surgical History General: Appendectomy - Present Medications Home Medications: Ambulatory Orders Medication Instructions Recorded Confirmed Butalbital/Aspirin/Caffeine 1 cap PO Q6H PRN 06/16/16 07/03/17 [Fiorinal 50-325-40 mg Capsule] Albuterol 1 puffs INH Q4H PRN 06/18/16 07/03/17 ALPRAZolam [Alprazolam] 0.5 mg PO PRN PRN 06/24/16 07/03/17 Amitriptyline [Elavil] 25 mg PO QPM 06/24/16 07/03/17 ARIPiprazole [Abilify] 5 mg PO DAILY 05/11/17 07/03/17 Albuterol Sulf [Ventolin Hfa 2 puffs INH Q4HR PRN #1 inhaler 07/03/17 Inhaler] Albuterol Sulfate [Proair Hfa 05/23/18 Inhaler] Mometasone/Formoterol [Dulera 100 05/23/18 Mcg/5 Mcg Inhaler] Tiotropium [place] [Spiriva] 05/23/18 Albuterol Sulf [Ventolin Hfa 1 - 2 puffs INH Q4HR PRN #1 inhaler 07/15/18 Inhaler] Benzonatate [Tessalon Perle] 100 - 200 mg PO TID PRN #30 capsule 07/15/18 predniSONE [Deltasone] 10 mg PO [id number] #42 tab 07/15/18 - Allergies Allergies/Adverse Reactions: Allergies Allergy/AdvReac Type Severity Reaction Status Date / Time Penicillins Allergy Rash Verified 07/15/18 15:36 - Social History Does the pt smoke?: Yes Smoking Status: Current every day smoker Does the pt drink ETOH?: No Does the pt have substance abuse?: No - POLST Patient has POLST: No PD ED PE NORMAL - Vitals Vital signs reviewed: Yes - General General: Alert and oriented X 3, No acute distress - HEENT HEENT: Moist mucous membranes, Other (Right eye is normal. Left eye with current conjunctival injection) - Neck Neck: Supple, no meningeal sign - Cardiac Cardiac: RRR - Respiratory Respiratory: No respiratory distress, Other (Diffuse wheezing bilaterally) - Abdomen Abdomen: Soft, Non tender, Non distended - Derm Derm: Warm and dry, No rash - Neuro Neuro: Alert and oriented X 3 - Psych Psych: Normal mood, Normal affect Results - Vitals Vitals: Vital Signs - 24 hr 07/15/18 07/15/18 15:34 16:21 Temperature 36.1 C L Heart Rate 93 88 Respiratory 20 18 Rate Blood Pressure 138/91 H O2 Saturation 93 Oxygen O2 Source Room air PD MEDICAL DECISION MAKING - ED course Complexity details: reviewed results, re-evaluated patient, considered differential, d/w patient ED course: Patient is a 42-year-old female who presents with what appears to be a viral upper respiratory infection with wheezing. She is well-appearing, nontoxic. Afebrile. No hypoxia. No respiratory distress. She has her nebulizer and albuterol at home. Patient counseled regarding signs and symptoms for which I believe and urgent re-evaluation would be necessary. Patient with good understanding of and agreement to plan and is comfortable going home at this time This document was made in part using voice recognition software. While efforts are made to proofread this document, sound alike and grammatical errors may occur. Departure - Departure Disposition: 01 Home, Self Care Clinical Impression: COPD with exacerbation Condition: Good Instructions: ED COPD Flare Follow-Up: Nitza He ARNP [Primary Care Provider] - Within 1 week Prescriptions: Albuterol Sulf [Ventolin Hfa Inhaler] 1 - 2 puffs INH Q4HR PRN #1 inhaler PRN Reason: Shortness Of Air/Wheezing Benzonatate [Tessalon Perle] 100 - 200 mg PO TID PRN #30 capsule PRN Reason: Cough predniSONE [Deltasone] 10 mg PO [id number] #42 tab Comments: This cough will likely last for at least 2 weeks. Return if you worsen. There is no evidence of pneumonia today. Discharge Date/Time: 07/15/18 16:40
== END 2018-07-15 16:40 | disposition home or self-care (01) ==
LOC: ED 15:28
DX: J44.1 Chronic obstructive pulmonary disease with (acute) exacerbation (principal); F17.200 Nicotine dependence, unspecified, uncomplicated
CPT/HCPCS: 94640; 99281; 99283; A9270; J7512; 94664

== ENCOUNTER 2018-11-20 09:21 | Outpatient (CLI) | payer MEDICAID ==
[2018-11-20] MEDS ORDERED: ALBUTEROL NEB 2.5 MG/3 ML INH ONE (11:00)
== END 2018-11-20 09:22 | disposition home or self-care (01) ==
LOC: RT 09:21
PROVIDERS: ATTEND Nurse Practitioner
DX: J44.9 Chronic obstructive pulmonary disease, unspecified (principal); J45.20 Mild intermittent asthma, uncomplicated
CPT/HCPCS: 94060; 94729

== ENCOUNTER 2019-06-28 19:06 | Outpatient (CLI) | payer MEDICAID | END 2019-06-28 19:07 | disposition EMS.NT | LOC: EMS 19:06 | PROVIDERS: ATTEND Surgery | DX: R51 Headache (principal); R09.89 Other specified symptoms and signs involving the circulatory and respiratory systems ==

== ENCOUNTER 2019-12-14 09:52 | Outpatient (CLI) | payer MEDICAID ==
--- NOTE | 2019-12-14 10:17 | XRAY Report ---
Reason: COUGH Procedure Date: 12/14/2019 Accession Number: [id number] / [id number] Procedure: XR - Chest 2 View X-Ray CPT Code: 86519 Final Report FULL RESULT: EXAM: CHEST RADIOGRAPHY EXAM DATE: 12/14/2019 09:56 AM. CLINICAL HISTORY: COUGH. COMPARISON: CHEST 2 VIEW 05/23/2018 1:21 PM. TECHNIQUE: 2 views. FINDINGS: Lungs/Pleura: No focal opacities evident. No pleural effusion. No pneumothorax. Normal volumes. Mediastinum: Heart and mediastinal contours are unremarkable. Other: None. IMPRESSION: Normal 2-view chest radiography. RADIA
== END 2019-12-14 09:53 | disposition home or self-care (01) ==
LOC: DI 09:52
PROVIDERS: ATTEND Internal Medicine Critical Care Medicine
DX: R06.02 Shortness of breath (principal); R05 Cough; R06.2 Wheezing
CPT/HCPCS: 71046

== ENCOUNTER 2020-04-22 18:38 | Observation (INO) | payer MEDICAID ==
[2020-04-22] MEDS ORDERED: methylPREDNISolone SUCCINATE 125 MG/2 ML VIAL IVP STA (19:18)
[2020-04-22] MEDS ORDERED: LORazepam 2 MG/ML VIAL IVP STA (19:18)
[2020-04-22] MEDS ORDERED: IPRATROPIUM/ALBUTEROL 3 ML NEB INH STA ×2 (19:18→21:40)
--- NOTE | 2020-04-22 19:21 | ED Physician Documentation ---
PD HPI DYSPNEA - Stated complaint Stated Complaint: DIFFICULTY BREATHING - Chief complaint Chief Complaint: Resp - History obtained from History obtained from: Patient - Additional information Additional information: 44 yo F w hx of COPD, on 2 inhaled agents and as needed DuoNeb. Wears 4 L of oxygen at baseline as well as oxygen enhanced CPAP at night. Continues to smoke. Also morbid obesity. She is been sick for about 2 weeks, was on steroids and more recently finished a Z-Darrin prescribed by her brownfield redevelopment site manager. Continues to feel weak and feeling out of it with shortness of breath and productive cough. Note sats in the low 80s when she takes off her oxygen for coughing fits or going to the bathroom. Review of Systems Ten Systems: 10 systems reviewed and negative Constitutional: reports: Fatigue. denies: Fever, Chills Nose: denies: Rhinorrhea / runny nose Cardiac: denies: Chest pain / pressure Respiratory: reports: Dyspnea, Cough GI: denies: Abdominal Pain PD PAST MEDICAL HISTORY - Past Medical History Cardiovascular: None Respiratory: COPD Endocrine/Autoimmune: None GI: None : None HEENT: None Psych: Depression, Anxiety, Panic attacks Musculoskeletal: None Derm: None - Past Surgical History Past Surgical History: No General: Appendectomy - Present Medications Home Medications: Ambulatory Orders Medication Instructions Recorded Confirmed Butalbital/Aspirin/Caffeine 1 cap PO Q6H PRN 06/16/16 07/03/17 [Fiorinal 50-325-40 mg Capsule] Albuterol 1 puffs INH Q4H PRN 06/18/16 07/03/17 ALPRAZolam [Alprazolam] 0.5 mg PO PRN PRN 06/24/16 07/03/17 Amitriptyline [Elavil] 25 mg PO QPM 06/24/16 07/03/17 ARIPiprazole [Abilify] 5 mg PO DAILY 05/11/17 07/03/17 Albuterol Sulf [Ventolin Hfa 2 puffs INH Q4HR PRN #1 inhaler 07/03/17 Inhaler] Albuterol Sulfate [Proair Hfa 05/23/18 Inhaler] Mometasone/Formoterol [Dulera 100 05/23/18 Mcg/5 Mcg Inhaler] Tiotropium [place] [Spiriva] 05/23/18 Albuterol Sulf [Ventolin Hfa 1 - 2 puffs INH Q4HR PRN #1 inhaler 07/15/18 Inhaler] Benzonatate [Tessalon Perle] 100 - 200 mg PO TID PRN #30 capsule 07/15/18 predniSONE [Deltasone] 10 mg PO [id number] #42 tab 07/15/18 - Allergies Allergies/Adverse Reactions: Allergies Allergy/AdvReac Type Severity Reaction Status Date / Time Penicillins Allergy Rash Verified 07/15/18 15:36 - Social History Does the pt smoke?: Yes Smoking Status: Current every day smoker Does the pt drink ETOH?: No Does the pt have substance abuse?: No - Family History Family history: reports: Non contributory - Immunizations Immunizations are current?: No - POLST Patient has POLST: No PD ED PE NORMAL - Vitals Vital signs reviewed: Yes - General General: Alert and oriented X 3, No acute distress - HEENT HEENT: PERRL, EOMI - Neck Neck: Supple, no meningeal sign, No bony TTP - Cardiac Cardiac: RRR, No murmur - Respiratory Respiratory: Other (Minimally labored breathing but speaking in full sentences, severely diminished breath sounds throughout without focal findings.) - Abdomen Abdomen: Non tender - Back Back: No spinal TTP - Derm Derm: No rash - Extremities Extremities: No edema, No calf tenderness / cord - Neuro Neuro: Alert and oriented X 3, Normal speech - Psych Psych: Normal mood, Normal affect Results - Vitals Vitals: Vital Signs - 24 hr 04/22/20 04/22/20 04/22/20 18:41 18:53 19:29 Temperature 36.4 C L Heart Rate 96 94 89 Respiratory 20 20 20 Rate Blood Pressure 149/93 H 138/88 H O2 Saturation 96 98 Oxygen O2 Source Nasal cannula Oxygen Flow Rate 4 - Labs Labs: Laboratory Tests 04/22/20 04/22/20 04/22/20 19:43 19:43 19:43 WBC 11.3 H RBC 4.81 Hgb 15.4 Hct 44.9 MCV 93.3 MCH 32.0 H MCHC 34.3 RDW 13.1 Plt Count 203 MPV 9.8 Neut # (Auto) 7.1 H Lymph # (Auto) 3.1 [place] # (Auto) 0.9 Eos # (Auto) 0.2 Baso # (Auto) 0.1 Absolute Nucleated RBC 0.00 Nucleated RBC % 0.0 VBG pH 7.419 H VBG pCO2 29.4 L VBG pO2 50.6 H VBG HCO3 18.6 L VBG Total CO2 19.5 L VBG O2 Saturation 85.0 H VBG Base Excess -4.4 L Sodium 137 Potassium 2.6 L Chloride 96 L Carbon Dioxide 23 Anion Gap 18.0 H BUN 15 Creatinine 0.9 Estimated GFR (MDRD) 68 L Glucose 98 Calcium 9.6 Total Bilirubin 1.1 H AST 35 ALT 43 Alkaline Phosphatase 69 Total Protein 8.7 H Albumin 3.9 Globulin 4.8 H Albumin/Globulin Ratio 0.8 L Lipase 25 PD MEDICAL DECISION MAKING - ED course ED course: 44-year-old woman with history of COPD presents with an exacerbation of same that has failed outpatient medical management having already been on steroids and antibiotics. She is very tight throughout with poor air motion. This improved slightly with a DuoNeb but not much and looked very breathless on a road test with oxygen here although her sats did not drop and there is no evidence of carbon dioxide retention. Spoke with Dr. Whitaker for observation at 9:49 PM. Departure - Departure Disposition: ED Place in Observation Clinical Impression: COPD with exacerbation Condition: Serious
[2020-04-22 19:51] LABS: BASOPHILS # (AUTO) 0.1 10^3/uL (0.0-0.1); BASOPHILS % (AUTO) 0.4 %; EOSINOPHILS # (AUTO) 0.2 10^3/uL (0.0-0.7); EOSINOPHILS % (AUTO) 1.6 %; HGB - HEMOGLOBIN 15.4 g/dL (12.0-16.0); LYMPHOCYTES # (AUTO) 3.1 10^3/uL (1.5-3.5); LYMPHOCYTES % (AUTO) 27.2 %; MEAN CORPUSCULAR HGB CONC 34.3 g/dL (32.0-36.0); MEAN CORPUSCULAR VOLUME 93.3 fL (81.0-99.0); MEAN PLATELET VOLUME 9.8 fL (7.9-10.8); MONOCYTES # (AUTO) 0.9 10^3/uL (0.0-1.0); MONOCYTES % (AUTO) 8.1 %; NEUTROPHILS # (AUTO) 7.1 10^3/uL (1.5-6.6); NEUTROPHILS % (AUTO) 62.3 %; PLT - PLATELET COUNT 203 10^3/uL (130-450); RED BLOOD COUNT 4.81 10^6/uL (4.20-5.40); RED CELL DISTRIBUTION WIDTH 13.1 % (12.0-15.0); WHITE BLOOD COUNT 11.3 x10^3/uL (4.8-10.8)
[2020-04-22 20:03] LABS: ALBUMIN 3.9 g/dL (3.2-5.5); ALBUMIN/GLOBULIN RATIO 0.8 (1.0-2.2); BILIRUBIN,TOTAL 1.1 mg/dL (0.2-1.0); CALCIUM 9.6 mg/dL (8.5-10.3); CREATININE 0.9 mg/dL (0.4-1.0); TOTAL PROTEIN 8.7 g/dL (6.7-8.2)
[2020-04-22 20:07] LABS: VBG PH 7.419 (7.31-7.41)
[2020-04-22 20:08] LABS: VBG BASE EXCESS -4.4 mmol/L (-2 - +2); VBG PCO2 29.4 mmHg (41-51); VBG PO2 50.6 mmHg (25-47); VBG TOTAL CO2 19.5 mmol/L (24-29)
--- NOTE | 2020-04-22 20:11 | XRAY Report ---
PROCEDURE: Chest 1 View X-Ray INDICATIONS: dyspnea TECHNIQUE: One view of the chest was acquired. COMPARISON: 12/14/2019 FINDINGS: Surgical changes and devices: None. Lungs and pleura: No pleural effusions or pneumothorax. Lungs are clear. Mediastinum: Mediastinal contours appear normal. Heart size is normal. Bones and chest wall: No suspicious bony lesions. Overlying soft tissues appear unremarkable. IMPRESSION: No acute cardiopulmonary pathology. Reviewed by: Alvino Marcelo MD on 04/22/2020 8:10 PM PDT Approved by: Alvino Marcelo MD on 04/22/2020 8:10 PM PDT Station ID: [id number]
[2020-04-22] MEDS ORDERED: POTASSIUM CHLORIDE 20 MEQ TABLET PO STA (20:13)
[2020-04-22] MEDS ORDERED: MORPHINE 2 MG/ML CARPUJECT IVP STA (20:21)
[2020-04-22] MEDS ORDERED: HYDROmorphone 1 MG/ML CARPUJECT IVP STA (21:40)
[2020-04-22] MEDS ORDERED: ONDANSETRON 4 MG/2 ML VIAL IVP PRN (21:47)
[2020-04-22] MEDS ORDERED: guaiFENesin 100 MG/5 ML UDC PO PRN (21:50)
[2020-04-22] MEDS ORDERED: BENZONATATE 100 MG CAPSULE PO PRN (21:50)
--- NOTE | 2020-04-22 21:54 | HISTORY & PHYSICAL EXAMINATION ---
Chief Complaint - Chief Complaint Chief Complaint: Shortness of breath History of Present Illness - Admitted From Admitted From:: Home - History Obtained From Records Reviewed: Yes History obtained from: Patient, ER Physician, EMR - History of Present Illness HPI Comment/Other: This is a 44-year-old female with a past medical history significant for COPD on 4 L of oxygen at baseline, MILADIS on CPAP who presents today due to worsening shortness of breath and cough. He tells me she has end-stage COPD and that she is been told she has 4 years to live. She reports at baseline she has quite a bit of dyspnea with minimal exertion such as getting out of bed and walking to the bathroom. She states that she was prescribed prednisone about 2 weeks ago which she completed 5 days of therapy. This was prescribed by her sustainability communicator at [facility], Dr. Boucher. She states that he then treated her for pneumonia and prescribed her azithromycin which she completed 2 days ago. She states despite these interventions, she continues to have persistent dyspnea that is worse than her baseline. She does not feel like she is wheezing but her family has told her that they can hear her wheezing. She has had a worsening cough with sputum production. She reports hot flashes at home but denies any fevers. She reports occasional chills. She was tested for COVID-19 1 month ago prior to a doctor's office visit. She denies any recent sick contacts. She rarely leaves the home and when she does she does use a mask. She reports pleuritic chest pain. She does report one episode of vomiting and one episode of diarrhea that occurred today. These have both since resolved. She still does feel a bit of nausea. She still smokes 2 to 3 cigarettes a day. She previously smoked a pack a day for 30+ years. She is currently on Chantix. In the emergency department, she is found to be afebrile temperature of 36.4 C. Her heart rate was 96. Her blood pressure is 149/93. Her respiratory was 20. She was saturating at 98% on 4 L of oxygen via nasal cannula. Labs are significant for white count 11.3. Her potassium was 2.6. Anion gap was eleva deonna at 18. Her chest x-ray was unremarkable. She was given Solu-Medrol IV in the emergency department as well as two duonebs with only minimal improvement. Due to her ongoing symptoms, medicine was consulted for admission. I did discuss goals of care with the patient and she would like to be a full code. History - Past Medical History Cardiovascular: reports: Hypertension Respiratory: reports: COPD Endocrine/Autoimmune: reports: Type 2 diabetes GI: reports: None : reports: None HEENT: reports: None Psych: reports: Depression, Anxiety, Panic attacks Musculoskeletal: reports: None Derm: reports: None MRSA Hx?: No - Past Surgical History General: reports: Appendectomy - Family & Social History Family History Comment/Other: She reports her twin sister also has COPD as well as her brother and 2 of her grandparents. They are all smokers. Living arrangement: At home Living Situation: With family Social History Notes: Lives at home with her , twin sister, and her children. She smokes 2 to 3 cigarettes a day and is currently on Chantix. She does have a [id number] smoking history. She denies any alcohol or illicit drug use. - POLST Patient has POLST: No Meds/Allgy - Home Medications Home Medications: Ambulatory Orders Medication Instructions Recorded Confirmed Butalbital/Aspirin/Caffeine 1 cap PO Q6H PRN 06/16/16 07/03/17 [Fiorinal 50-325-40 mg Capsule] Albuterol 1 puffs INH Q4H PRN 06/18/16 07/03/17 ALPRAZolam [Alprazolam] 0.5 mg PO PRN PRN 06/24/16 07/03/17 Amitriptyline [Elavil] 25 mg PO QPM 06/24/16 07/03/17 ARIPiprazole [Abilify] 5 mg PO DAILY 05/11/17 07/03/17 Albuterol Sulf [Ventolin Hfa 2 puffs INH Q4HR PRN #1 inhaler 07/03/17 Inhaler] Albuterol Sulfate [Proair Hfa 05/23/18 Inhaler] Mometasone/Formoterol [Dulera 100 05/23/18 Mcg/5 Mcg Inhaler] Tiotropium [place] [Spiriva] 05/23/18 Albuterol Sulf [Ventolin Hfa 1 - 2 puffs INH Q4HR PRN #1 inhaler 07/15/18 Inhaler] Benzonatate [Tessalon Perle] 100 - 200 mg PO TID PRN #30 capsule 07/15/18 predniSONE [Deltasone] 10 mg PO [id number] #42 tab 07/15/18 - Allergies Allergies/Adverse Reactions: Allergies Allergy/AdvReac Type Severity Reaction Status Date / Time Penicillins Allergy Rash Verified 07/15/18 15:36 Review of Systems - Constitutional Constitutional: reports: Chills, Weakness, Other (Hot flashes.). denies: Fever - Ears, Nose & Throat Ears, Nose & Throat: denies: Nasal discharge, Postnasal drainage, Sore throat - Cardiovascular Cariovascular: reports: Chest pain (With inspiration.), Edema, Lightheadedness, Exertional dyspnea, Decr. exercise tolerance - Respiratory Respiratory: reports: Cough, Sputum production, SOB at rest, SOB with exertion. denies: Wheezing - Gastrointestinal Gastrointestinal: reports: Diarrhea, Change in bowel habits, Nausea, Vomiting. denies: Abdominal pain - Genitourinary Genitourinary: denies: Dysuria, Frequency, Urgency, Hematuria - Musculoskeletal Musculoskeletal: denies: Muscle pain, Limited range of motion, Muscle weakness - Integumentary Integumentary: denies: Rash - Neurological Neurological: reports: General weakness, Dizziness. denies: Focal weakness - All Other Systems All Other Systems: reports: Reviewed and negative Prior Level of Functionality: She is independent with her ADLs but is limited by her COPD. Exam - Vital Signs Reviewed Vital Signs: Yes Vital Signs: Vital Signs x48h Temp Pulse Resp BP Pulse Ox 04/22/20 19:29 89 20 04/22/20 18:53 94 20 138/88 H 98 04/22/20 18:41 36.4 C L 96 20 149/93 H 96 - Physical Exam General Appearance: positive: Alert, Mild distress Eyes Bilateral: positive: Normal inspection, Conjunctivae nml ENT: positive: ENT inspection nml, Other (Nasal cannula in place.) Neck: positive: Nml inspection Respiratory: positive: No respiratory distress, Other (She does not appear to be in distress. She is slightly tachypneic. Breath sounds are significantly diminished throughout. No obvious wheezes or rales.). negative: Wheezes, Rales Cardiovascular: positive: Regular rate & rhythm, No murmur. negative: Tachycardia, Bradycardia, Systolic murmur Abdomen: positive: Non-tender, Nml bowel sounds, No distention. negative: Tenderness, Guarding, Rebound Skin: positive: Warm, Dry Extremities: positive: Full ROM, Pedal edema (Trace pitting edema in bilateral lower extremities.). negative: Calf tenderness, Eligio's sign/cords Neurologic/Psychiatric: positive: Oriented x3, Other (No focal deficits.). negative: Disoriented to person, Disoriented to place Conclusion/Plan - Problem List (1) COPD exacerbation Conclusion/Plan: She presents with ongoing dyspnea and a productive cough. She failed outpatient management with prednisone and recently completed a course of azithromycin. She remains on her baseline 4 L of oxygen and fortunately she is not hypoxic compared to her baseline. Her chest x-ray is unremarkable. She received Solu- Medrol IV in the emergency department. We will place her on oral prednisone 40 mg daily. We will also start her on Levaquin IV empirically. Continue supplemental oxygen. Morphine as needed for dyspnea. Tessalon and Robitussin for her cough. Rule out Covid. (2) Chronic respiratory failure with hypoxia Conclusion/Plan: This is secondary to her COPD. She is on 4 L of oxygen at baseline and she currently remains on 4 L. Her x-rays not reveal any acute abnormalities. We will treat her COPD exacerbation as mentioned above. (3) MILADIS on CPAP Conclusion/Plan: We will continue her home CPAP. (4) Hypokalemia Conclusion/Plan: Her potassium is 2.6 on admission. Suspect is likely due to increased use of her home inhalers. We will replace this orally and intravenously. Recheck in the morning. (5) Hypertension Conclusion/Plan: She is currently normotensive. We will resume her home antihypertensives once the doses are confirmed. (6) Type 2 diabetes mellitus Conclusion/Plan: She reports being on metformin at home. Blood glucose is [address] will [address] her on a sliding scale and carb controlled diet. Check an A1c. - Lab Results Lab results reviewed: Yes Fish Bones: 04/23/20 05:05 04/23/20 05:05 - Diagnostic Imaging Results Diagnostic Imaging Results: positive: Final report reviewed - EKG Results EKG Interpreted Independently: Yes EKG Comparison: Changed from prior EKG EKG Findings: Her EKG shows sinus rhythm with flattening of T waves in V2 to V3. Otherwise there are no ischemic changes. The flattening of T waves is new compared to her prior EKG from 2018. Core Measures - Anticipated LOS I expect patient to be DC'd or transferred within 96 hours.: Yes - Issues Hospital Issues and Management Plan: 44-year-old female with history of COPD on 4 L of oxygen at baseline presents with worsening dyspnea. She failed outpatient management of her COPD exacerbation and will be admitted for further treatment. We will place her on steroids and antibiotics. - DVT/VTE - Prophylaxis VTE/DVT Device ordered at admit?: Yes VTE/DVT Prophylaxis med ordered at admit?: Yes
[2020-04-22] MEDS ORDERED: levoFLOXacin 750 MG/150 ML 750 MG/150 ML BAG IV SCH (22:00)
[2020-04-22] MEDS: SODIUM CHLORIDE FLUSH 0.9% 10 ML SYRINGE IVP SCH (22:55)
[2020-04-22] MEDS: POTASSIUM CHLOR 10 MEQ/100 ML 10 MEQ/100 ML BAG IV SCH (22:58)
[2020-04-23] MEDS: POTASSIUM CHLOR 10 MEQ/100 ML 10 MEQ/100 ML BAG IV SCH ×3 (00:04→03:27)
[2020-04-23] MEDS: MORPHINE 2 MG/ML CARPUJECT IVP PRN ×4 (00:08→12:34)
[2020-04-23] MEDS: SODIUM CHLORIDE FLUSH 0.9% 10 ML SYRINGE IVP SCH (00:16)
[2020-04-23] MEDS: ALBUTEROL 1 PUFF INH SCH ×5 (01:31→13:55)
[2020-04-23] MEDS: SODIUM CHLORIDE FLUSH 0.9% 10 ML SYRINGE IVP PRN ×2 (04:49→04:51)
[2020-04-23 05:31] LABS: BASOPHILS % (AUTO) 0.1 %; EOSINOPHILS % (AUTO) 0.1 %; HGB - HEMOGLOBIN 14.4 g/dL (12.0-16.0); LYMPHOCYTES # (AUTO) 1.2 10^3/uL (1.5-3.5); MEAN CORPUSCULAR HEMOGLOBIN 31.9 pg (27.0-31.0); MEAN CORPUSCULAR HGB CONC 34.2 g/dL (32.0-36.0); MEAN CORPUSCULAR VOLUME 93.1 fL (81.0-99.0); MEAN PLATELET VOLUME 10.1 fL (7.9-10.8); MONOCYTES # (AUTO) 0.3 10^3/uL (0.0-1.0); MONOCYTES % (AUTO) 3.5 %; NEUTROPHILS # (AUTO) 7.4 10^3/uL (1.5-6.6); NEUTROPHILS % (AUTO) 82.9 %; PLT - PLATELET COUNT 196 10^3/uL (130-450); RED BLOOD COUNT 4.52 10^6/uL (4.20-5.40); RED CELL DISTRIBUTION WIDTH 12.9 % (12.0-15.0)
[2020-04-23 05:46] LABS: CALCIUM 9.2 mg/dL (8.5-10.3); CREATININE 0.8 mg/dL (0.4-1.0); MAGNESIUM 1.5 mg/dL (1.7-2.8); PHOSPHORUS 2.3 mg/dL (2.5-4.6)
[2020-04-23 05:49] LABS: HB2 TOTAL 15.7 g/dL; HEMOGLOBIN A1C 0.66 g/dL
[2020-04-23] MEDS ORDERED: POTASSIUM CHLORIDE 20 MEQ TABLET PO ONE (06:40)
[2020-04-23] MEDS ORDERED: MAGNESIUM OXIDE 400 MG TABLET PO ONE (07:00)
[2020-04-23] MEDS: ACETAMINOPHEN 325 MG TABLET PO PRN ×2 (07:07→12:04)
[2020-04-23] MEDS ORDERED: predniSONE 10 MG TABLET PO SCH (08:00)
[2020-04-23] MEDS ORDERED: NEUTRA-PHOS 250 MG TABLET PO ONE (09:00)
[2020-04-23] MEDS ORDERED: ENOXAPARIN 40 MG/0.4 ML SYRINGE SUBQ SCH (09:00)
[2020-04-23] MEDS: INSULIN ASPART 300 UNIT/3 ML PEN SUBQ SCH ×2 (11:39→12:23)
--- NOTE | 2020-04-23 13:25 | PHARMACY PROGRESS NOTE ---
- Best Possible Medication History Admit Date and Time: 04/22/202141 Processed by: Pharmacy Medication History completed: Yes Secondary Source(s): Pharmacy records, Insurance records As the person ultimately responsible for medication therapy, providers are able to order a medication from an existing home medication list in [facility] via the "Reconcile Routine" prior to Confirmation of that medication by phlebotomy support tech. Such practice is discouraged except when the physician, in their clinical judgment, deems that a medical need exists for a medication without regard to previous use.
--- NOTE | 2020-04-23 15:02 | Discharge Plan ---
Discharge Plan Problem Reviewed?: Yes Disposition: Home, Self Care Condition: Fair Prescriptions: levoFLOXacin [Levaquin] 500 mg PO QDAC #10 tablet Prednisone 5 mg PO UD #56 tablet Diet: Diabetic Activity Restrictions: Activity as Tolerated Shower Restrictions: No Driving Restrictions: No Health Concerns: Unfortunately you have advanced emphysema and you are already on 4 L of oxygen at home. In the last few weeks you have been getting more coughing and more shortness of breath and your primary care provider treated you with prednisone and Z-Darrin. It was not working so you came to the emergency room because your oxygen levels were worse than usual. In our emergency room, your chest x-ray did not have pneumonia. White cell count was a little bit elevated. You had a low potassium, and your sugars were high. However your glycosylated hemoglobin is 6% which indicates decent control of your diabetes. We did look at your heart to make sure you were not having a heart attack as the cause of your shortness of breath and that blood test and EKG were normal. We placed you in observation overnight. Plan of Treatment: 1. Intravenous steroids were used 2. Intravenous antibiotics were used 3. You feel like you are stable to go home now. Your shortness of breath is at baseline. And your need for oxygen is the same as always. As such she will go home with a tapering dose of prednisone and 5 more days of antibiotics. 4. Your antibiotics will be Levaquin, 250 mg tablets. 2 tablets a day for the next 5 days. 5. Your steroids will be prednisone. 7 tablets a day for 2 days. Then 6 tablets a day for 2 days. Then 5 tablets a day for 2 days. Then 4 tablets a day for 2 days. Then 3 tablets a day for 2 days. Finally you will take 1 tablet a day for 2 days and be done. 6. Your current medication is a long-acting bronchodilator and steroid whose generic name is budesonide and formoterol. Ask your doctor if taking the inhaled version via nebulizer would be better for you. I also think that the inhaled version of albuterol, versus a metered-dose inhaler, would be better for you as well. Continue your Spiriva daily. 7. Please see your primary care provider in the next week. Care Goals: to be back at baseline ocygen need with stable shortness of breath Assessment: Patient is anxious to get home. She promises to follow through with medications and a visit to her primary care provider No Smoking: If you smoke, Please STOP! Call for help. Follow-up with: Provider,Other [Primary Care Provider] -
[2020-04-23 16:13] VITALS: BP 114/62
--- NOTE | 2020-04-23 16:48 | DISCHARGE SUMMARY ---
Discharge Summary Admit Date: 04/22/20 Discharge Date: 04/23/20 Discharging Provider: Luna Viera MD Primary Care Provider: Jimmy Valdez DO Code Status: Attempt Resuscitation Condition at Discharge: Fair Discharge Disposition: 01 Home, Self Care - DIAGNOSES Discharge Diagnoses with Status of Each Condition: 1. COPD exacerbation 2. Chronic respiratory failure with hypoxia 3. Obstructive sleep apnea on CPAP 4. Hypokalemia 5. Hypertension 6. Type 2 diabetes mellitus,, controlled, not on long-term insulin - HPI History of Present Illness: This is a 44-year-old female with a past medical history significant for COPD on 4 L of oxygen at baseline, MILADIS on CPAP who presents today due to worsening shortness of breath and cough. He tells me she has end-stage COPD and that she is been told she has 4 years to live. She reports at baseline she has quite a bit of dyspnea with minimal exertion such as getting out of bed and walking to the bathroom. She states that she was prescribed prednisone about 2 weeks ago which she completed 5 days of therapy. This was prescribed by her jet engine mechanic at [facility], Dr. Boucher. She states that he then treated her for pneumonia and prescribed her azithromycin which she completed 2 days ago. She states despite these interventions, she continues to have persistent dyspnea that is worse than her baseline. She does not feel like she is wheezing but her family has told her that they can hear her wheezing. She has had a worsening cough with sputum production. She reports hot flashes at home but denies any fevers. She reports occasional chills. She was tested for COVID-19 1 month ago prior to a doctor's office visit. She denies any recent sick contacts. She rarely leaves the home and when she does she does use a mask. She reports pleuritic chest pain. She does report one episode of vomiting and one episode of diarrhea that occurred today. These have both since resolved. She still does feel a bit of nausea. She still smokes 2 to 3 cigarettes a day. She previously smoked a pack a day for 30+ years. She is currently on Chantix. In the emergency department, she is found to be afebrile temperature of 36.4 C. Her heart rate was 96. Her blood pressure is 149/93. Her respiratory was 20. She was saturating at 98% on 4 L of oxygen via nasal cannula. Labs are significant for white count 11.3. Her potassium was 2.6. Anion gap was elevated at 18. Her chest x-ray was unremarkable. She was given Solu-Medrol IV in the emergency department as well as two duonebs with only minimal improvement. Due to her ongoing symptoms, medicine was consulted for admission. I did discuss goals of care with the patient and she would like to be a full code. Past Medical History Cardiovascular: reports: Hypertension Respiratory: reports: COPD Endocrine/Autoimmune: reports: Type 2 diabetes GI: reports: None : reports: None HEENT: reports: None Psych: reports: Depression, Anxiety, Panic attacks Musculoskeletal: reports: None Derm: reports: None - CONSULTS | PROCEDURES Procedures: 1. Chest x-ray without acute cardiopulmonary pathology - HOSPITAL COURSE Hospital Course: Her hypoxemia was felt to be baseline. So she did not need increased oxygen. That stayed stable over her observation status. It was mainly her subjective shortness of breath that was bothering her. After a few hours in observation she felt like she was able to go back home. She felt like she was safe to do so. I have sent her home on a tapering dose of oral steroids, slow taper. Change antibiotics to Levaquin. I would like her to see her primary care provider in follow-up. She sees a resident at [facility] right now . I have made sure that he gets a copy of this discharge summary. At discharge she was an alert oriented cheerful lady. 5 feet 4 inches tall weighing 119 kg. Temperature was 36.7. Pulse 69. Blood pressure 114/62. Respirations 20 and unlabored. She is 100% saturated on 4 L nasal cannula. Voi ce was slightly hoarse, and when she left she would wheeze again. But when at rest, and speaking in a normal voice, there was no use of accessory muscles, no increased respiratory effort. Slight end exhalation wheeze that were faint and bilateral. Abdomen was with a huge obese pannus. Normal bowel sounds. Ankles without edema and she was ambulating in the room without difficulty. She got up to go to the bathroom, eat her breakfast and lunch. She did make a comment that the breakfast was just "absolutely terrible". Cold eggs and nasty potatoes. - ALLERGIES Allergies/Adverse Reactions: Allergies Allergy/AdvReac Type Severity Reaction Status Date / Time Penicillins Allergy Rash Verified 07/15/18 15:36 - MEDICATIONS Home Medications: Ambulatory Orders Medication Instructions Recorded Confirmed Albuterol Sulf [Ventolin Hfa 2 puffs INH Q4HR PRN #1 inhaler 07/03/17 04/23/20 Inhaler] Tiotropium [place] [Spiriva] 1 puffs INH DAILY 05/23/18 04/23/20 ALPRAZolam [Alprazolam] 1 mg PO TID PRN 04/23/20 04/23/20 Atorvastatin Calcium 40 mg PO QPM 04/23/20 04/23/20 Budesonide/Formoterol Fumarate 2 puffs INH BID 04/23/20 04/23/20 [Budesonide-Formoterol 160-4.5] Buspirone HCl 15 mg PO TID 04/23/20 04/23/20 Butalb/Acetaminophen/Caffeine 1 - 2 each PO Q4H PRN 04/23/20 04/23/20 [Lcjdrv-Bhazgmcv-Piio 50-325-40] Gabapentin 300 mg PO TID 04/23/20 04/23/20 Loratadine [Claritin] 10 mg PO DAILY 04/23/20 04/23/20 Metformin HCl [Metformin HCl ER] 500 mg PO DAILY 04/23/20 04/23/20 Montelukast [Singulair] 10 mg PO QPM 04/23/20 04/23/20 OLANZapine [Olanzapine] 10 mg PO DAILY 04/23/20 04/23/20 Prednisone 5 mg PO UD #56 tablet 04/23/20 Varenicline Tartrate [Chantix] 1 mg PO BID 04/23/20 04/23/20 hydroCHLOROthiazide 25 mg PO DAILY 04/23/20 04/23/20 [Hydrochlorothiazide] levoFLOXacin [Levaquin] 500 mg PO QDAC #10 tablet 04/23/20 - LABS Result Diagrams: 04/23/20 05:05 04/23/20 05:05
== END 2020-04-23 16:37 | disposition home or self-care (01) ==
LOC: ED 18:38 → MS2 21:42
PROVIDERS: ADMIT Internal Medicine; ATTEND Specialist
DX: J44.1 Chronic obstructive pulmonary disease with (acute) exacerbation (principal); J96.11 Chronic respiratory failure with hypoxia; E87.6 Hypokalemia; E11.9 Type 2 diabetes mellitus without complications; E66.01 Morbid (severe) obesity due to excess calories; G47.33 Obstructive sleep apnea (adult) (pediatric); I10 Essential (primary) hypertension; R19.7 Diarrhea, unspecified; R11.2 Nausea with vomiting, unspecified; F41.0 Panic disorder [episodic paroxysmal anxiety]; F32.9 Major depressive disorder, single episode, unspecified; F17.210 Nicotine dependence, cigarettes, uncomplicated; Z68.42 Body mass index [BMI] 45.0-49.9, adult; Z79.51 Long term (current) use of inhaled steroids; Z79.52 Long term (current) use of systemic steroids; Z79.84 Long term (current) use of oral hypoglycemic drugs; Z79.899 Other long term (current) drug therapy; Z82.5 Family history of asthma and other chronic lower respiratory diseases; Z87.01 Personal history of pneumonia (recurrent); Z99.81 Dependence on supplemental oxygen
CPT/HCPCS: 36415; 71045; 80048; 80053; 82803; 83036; 83605; 83690; 83735; 84100; 84484; 85025; 87635; 93005; 94640; 96365; 96366; 96367; 96368; 96372; 96375; 96376; 99285; A9270; J1170; J1650; J2060

== ENCOUNTER 2020-12-22 17:12 | Outpatient (CLI) | payer MEDICAID | END 2020-12-22 17:13 | disposition E | LOC: EMS 17:12 ==